=== PATIENT | female | born 1950 | race Caucasian/White ===

== ENCOUNTER 2017-02-08 17:37 | Emergency (ER) | payer MEDICARE, OTHER ==
--- NOTE | 2017-02-08 18:24 | ER NURSING DOCUMENTATION ---
Nurse's Notes [facility] Name:Damari Colbert Age:66 yrs Sex:Female :1950 Arrival Date:02/08/2017 Time:17:37 Bed1 Private MD:No PCP, Identified Diagnosis:Lower Extremity Pain Presentation: 02/08 17:41 Acuity: KIAH 4 rh 17:53 Presenting complaint: Patient states: Pt traveled from [facility] last week and rh developed pain behind the right knee and some bulging veins. Pt also c/o left shoulder discomfort. Transition of care: Home. 17:53 Method Of Arrival: Private Vehicle rh Triage Assessment: 17:55 General: Appears in no apparent distress, Behavior is cooperative. Pain: Complains of rh pain in posterior aspect of right knee and right calf. Cardiovascular: Capillary refill < 3 seconds Chest pain is denied. Derm: Skin is intact, is healthy with good turgor, Skin is pink, warm & dry. Musculoskeletal: Circulation, motion, and sensation intact Range of motion intact in all extremities. Historical: - Allergies: No known drug Allergies; - Home Meds: 1. Crestor oral 2. Lantus Sub-Q 3. Glucophage Oral 4. Unknown BP meds - PMHx: Hypertension; Diabetes - IDDM; HIGH CHOLESTEROL; - PSHx: Hysterectomy; Tonsillectomy; Cholecysectomy; Lap Band; - Tetanus: < 10 years. - Ebola Screening: : Patient negative for fever greater than or equal to 101.5 degrees Fahrenheit, and additional compatible Ebola Virus Disease symptoms. - Immunization history: Flu Vaccine < 1 year. - Social history: Smoking status: Patient states was never smoker of tobacco. Screenin:56 Infectious Disease Risk None. Abuse screen: Denies threats or abuse. Denies injuries rh from another. Nutritional screening: No deficits noted. Assessment: 17:56 See Triage Assessment done by same RN. rh Vital Signs: 17:55 BP 172 / 91; Pulse 86; Resp 17; Temp 98.2(O); Pulse Ox 94% on R/A; Weight 92.53 kg; rh Height 5 ft. 7 in. (170.18 cm); Pain 3/10; 17:55 Body Mass Index 31.95 (92.53 kg, 170.18 cm) rh ED Course: 17:39 Patient arrived in ED. ds 17:39 No PCP, Identified is Private Physician. ds 17:41 Kori Snowden is Primary Nurse. rh 17:41 Triage completed. rh 17:55 Notified ED Physician of patient's arrival and chief complaint. Dr. Webber notified. rh 17:56 Valuables Remains with patient Patient has correct armband on for positive rh identification. Bed in low position. Call light in reach. 18:00 David Webber MD is Attending Physician. 18:10 EKG done. (by ED staff). Reviewed by David Webber MD. rh Administered Medications: 18:21 Drug: Lovenox 1 mg/kg; Route: Sub-Q; Site: right upper abdomen; rh 18:23 Follow up: Response: No adverse reaction rh Outcome: 18:09 Discharge ordered by . 18:23 Discharged to home ambulatory. rh 18:23 Condition: stable 18:23 Discharge Assessment: Patient awake, alert and oriented x 3. No cognitive and/or functional deficits noted. Patient verbalized understanding of disposition instructions. 18:23 Discharge instructions given to patient, Instructed on discharge instructions, follow up and referral plans. Demonstrated understanding of instructions. 18:24 Patient left the ED. Signatures: Meghan, Lorrie, Reg Reg David Pizano MD MD jm Hofsess, Rachel
--- NOTE | 2017-02-08 18:24 | ER PHYSICIAN DOCUMENTATION ---
Physician Documentation [facility] Name:Damari Colbert Age:66 yrs Sex:Female :1950 Arrival Date:02/08/2017 Time:17:37 Bed1 Private MD:No PCP, Identified ED FerozDavid Disposition: 02/08/17 18:09 Discharged to Home/Self Care. Impression: Lower Extremity Pain. - Condition is Good. - Discharge Instructions: MUSCLE ACHING - MYALGIAS. - Medical Reconciliation form form. - Follow up: Private Physician; When: As needed; Reason: Continuance of care. - Problem is new. - Symptoms have improved. - Notes: Return to the ER tomorrow AM for an ultrasound. HPI: 02/08 17:30 This 66 yrs old Female presents to ER via Private Vehicle with complaints of jm Leg Pain - RT. 17:30 The patient presents with pain, that is acute. The complaints affect the posterior jm aspect of right knee. Onset: The symptom(s)/episode began/occurred yesterday, and became worse today. Pt worried about a DVT, so she came in to get an US. . Historical: - Allergies: No known drug Allergies; - Home Meds: 1. Crestor oral 2. Lantus Sub-Q 3. Glucophage Oral 4. Unknown BP meds - PMHx: Hypertension; Diabetes - IDDM; HIGH CHOLESTEROL; - PSHx: Hysterectomy; Tonsillectomy; Cholecysectomy; Lap Band; - Tetanus: < 10 years. - Ebola Screening: : Patient negative for fever greater than or equal to 101.5 degrees Fahrenheit, and additional compatible Ebola Virus Disease symptoms. - Immunization history: Flu Vaccine < 1 year. - Social history: Smoking status: Patient states was never smoker of tobacco. ROS: 17:30 Cardiovascular: Negative for chest pain. jm 17:30 Respiratory: Negative for cough, shortness of breath. 17:30 MS/extremity: Positive for swelling, tenderness. 17:30 Skin: Positive for swelling. Exam: 17:30 Constitutional: The patient appears alert, awake, obese. 17:30 Cardiovascular: Rate: normal, Rhythm: regular. 17:30 Respiratory: the patient does not display signs of respiratory distress, Respirations: normal, Breath sounds: are normal. 17:30 Musculoskeletal/extremity: DVT Exam: no swelling, negative Homans' sign noted on exam, no appreciated bluish discoloration, no erythema, no increased warmth, pain, tenderness, Calves: have equal circumference, are tender, on right. 17:30 Skin: Appearance: Color: pink, no rash present. 17:30 Neuro: Mentation: is normal, Memory: is normal. Vital Signs: 17:55 BP 172 / 91; Pulse 86; Resp 17; Temp 98.2(O); Pulse Ox 94% on R/A; Weight 92.53 kg; rh Height 5 ft. 7 in. (170.18 cm); Pain 3/10; 17:55 Body Mass Index 31.95 (92.53 kg, 170.18 cm) rh MDM: 17:44 Patient medically screened. 02/09 09:32 Differential diagnosis: contusion, DVT or superficial phlebitis. Data reviewed: vital jm signs, nurses notes, and as a result, I will discharge patient. Counseling: I had a detailed discussion with the patient and/or guardian regarding: the historical points, exam findings, and any diagnostic results supporting the discharge/admit diagnosis, the need for outpatient follow up, for a recheck, tomorrow in the ER for an US of the RLE- Pt given lovenox here and told to RTED tomorrow when US is available. 02/08 18:01 Order name: 12-lead EKG; Complete Time: 18:22 Dispensed Medications: 02/08 18:21 Drug: Lovenox 1 mg/kg; Route: Sub-Q; Site: right upper abdomen; 18:23 Follow up: Response: No adverse reaction rh Signatures: David Webber MD MD jm Hofsess, Rachel
[2017-02-08] MEDS ORDERED: ENOXAPARIN SODIUM 100 MG/ML SYR SUBCUT ONE (18:25)
== END 2017-02-08 18:24 | disposition home or self-care (01) ==
LOC: ER 17:37
DX: M79.604 Pain in right leg (principal); M79.89 Other specified soft tissue disorders; E78.00 Pure hypercholesterolemia, unspecified; E11.9 Type 2 diabetes mellitus without complications; Z79.899 Other long term (current) drug therapy; Z79.4 Long term (current) use of insulin
CPT/HCPCS: 93005; 96372; 99282; 99283; J1650

== ENCOUNTER 2017-02-09 10:03 | Emergency (ER) | payer MEDICARE, OTHER ==
--- NOTE | 2017-02-09 10:59 | ER NURSING DOCUMENTATION ---
Nurse's Notes [facility] Name:Damari Colbert Age:66 yrs Sex:Female :1950 Arrival Date:02/09/2017 Time:10:03 Bed5 Private MD: Diagnosis:Bakers Cyst Presentation: 02/09 10:05 Presenting complaint: Patient states: right leg pain for a few days. pt seen yesterday st and told to return to get an US. Transition of care: Home. 10:05 Acuity: KIAH 4 st 10:05 Method Of Arrival: Private Vehicle st Triage Assessment: 10:14 General: Appears in no apparent distress, Behavior is cooperative. Pain: Complains of st pain in posterior aspect of right knee Pain currently is 3 out of 10 on a pain scale. Pain began 10 days ago. Cardiovascular: Capillary refill < 3 seconds Heart tones present Reports some swelling in her feet bilaterally since arrival. none assessable. Respiratory: No deficits noted. GI: No deficits noted. Musculoskeletal: blue spidery veins behind the right knee. Historical: - Allergies: No known drug Allergies; - Home Meds: 1. Crestor oral 2. Lantus Sub-Q 3. Glucophage Oral 4. Unknown BP meds - PMHx: HYPERTENSION; DIABETES - IDDM; HIGH CHOLESTEROL; Lower Extremity Pain (February 08, 2017); - PSHx: HYSTERECTOMY; TONSILLECTOMY; CHOLECYSECTOMY; Lap Band; - Tetanus: unknown will f/u with PCP. - Ebola Screening: : Patient denies exposure to infectious person. Patient denies travel to an Ebola-affected area in the 21 days before illness onset. . - Social history: Smoking status: Patient states was never smoker of tobacco. Patient uses alcohol but reports only rare drinking. Patient/guardian denies using marijuana. Screenin:17 Infectious Disease Risk None. Abuse screen: Denies threats or abuse. Denies injuries st from another. Nutritional screening: No deficits noted. Vital Signs: 10:17 BP 197 / 71; Pulse 74; Pulse Ox 93% ; Pain 3/10; st 10:57 BP 156 / 86; st ED Course: 10:05 Patient arrived in ED. ama 10:05 David Webber MD is Attending Physician. lindy 10:05 Clarissa Key RN is Primary Nurse. st 10:[address] 10:18 Valu[address] patient. st 10:27 Patient moved to [facility]. mk 10:44 Patient moved back from [facility]. mk Administered Medications: No medications were administered Outcome: 10:49 Discharge ordered by . jm 10:57 Discharged to home ambulatory. st 10:57 Condition: good 10:57 Discharge instructions given to patient, Instructed on discharge instructions, follow up and referral plans. 10:58 Patient [address] the ED[address] st Signatures: Clarissa Key, David Rodgers RN, MD MD jm Kimbro, Marcy mk Averdick, Andrew, Reg Reg ama
--- NOTE | 2017-02-09 10:59 | ER PHYSICIAN DOCUMENTATION ---
Physician Documentation [facility] Name:Damari Colbert Age:66 yrs Sex:Female :1950 Arrival Date:02/09/2017 Time:10:03 Bed5 Private MD: David Barnett Disposition: 02/09/17 10:49 Discharged to Home/Self Care. Impression: Bakers Cyst. - Condition is Good. - Discharge Instructions: NAVA'S CYST. - Medical Reconciliation form form. - Follow up: Private Physician; When: As needed; Reason: Continuance of care. - Problem is new. - Symptoms have improved. HPI: 02/09 11:46 This 66 yrs old Female presents to ER via Private Vehicle with complaints of jm Leg Pain - RIGHT. 11:46 The patient presents with pain. The complaints affect the posterior aspect of right jm knee. The patient has been recently seen at the [facility] Emergency Department, yesterday, for similar complaints the patient was told to return for a recheck, for an US. Historical: - Allergies: No known drug Allergies; - Home Meds: 1. Crestor oral 2. Lantus Sub-Q 3. Glucophage Oral 4. Unknown BP meds - PMHx: HYPERTENSION; DIABETES - IDDM; HIGH CHOLESTEROL; Lower Extremity Pain (February 08, 2017); - PSHx: HYSTERECTOMY; TONSILLECTOMY; CHOLECYSECTOMY; Lap Band; - Tetanus: unknown will f/u with PCP. - Ebola Screening: : Patient denies exposure to infectious person. Patient denies travel to an Ebola-affected area in the 21 days before illness onset. . - Social history: Smoking status: Patient states was never smoker of tobacco. Patient uses alcohol but reports only rare drinking. Patient/guardian denies using marijuana. ROS: 11:46 Constitutional: Negative for fever. jm 11:46 MS/extremity: Positive for pain. 11:46 Skin: Negative for swelling. Exam: 11:46 Constitutional: The patient appears alert, awake. jm 11:46 Musculoskeletal/extremity: Extremities: grossly normal except: noted in the posterior aspect of right knee: tenderness, There is no evidence of swelling, Sensation intact. Vital Signs: 10:17 BP 197 / 71; Pulse 74; Pulse Ox 93% ; Pain 3/10; st 10:57 BP 156 / 86; st MDM: 10:06 Patient medically screened. lindy 11:51 Differential diagnosis: contusion, abrasion, nava's cyst. Data reviewed: vital signs, jm nurses notes, radiologic studies, and as a result, I will discharge patient. Counseling: I had a detailed discussion with the patient and/or guardian regarding: the historical points, exam findings, and any diagnostic results supporting the discharge/admit diagnosis, the need for outpatient follow up, with the patient's primary care provider. 02/09 15:11 Order name: US EXT LOWER RIGHT [id number] EDMS Dispensed Medications: No medications were administered Signatures: Clarissa Key, RN David Rodgers MD MD jm
--- NOTE | 2017-02-09 13:48 | US REPORT ---
Routine venous duplex examination of the major deep veins of the right leg demonstrates no primary or secondary evidence of deep venous thrombosis. A 3.8 cm popliteal cyst is noted. IMPRESSION: 1. Examination is negative for major deep venous thrombosis. 2. A 3.8 cm right popliteal cyst is noted. MTDD
== END 2017-02-09 10:59 | disposition home or self-care (01) ==
LOC: ER 10:03
DX: M71.21 Synovial cyst of popliteal space [Baker], right knee (principal); I10 Essential (primary) hypertension; E11.9 Type 2 diabetes mellitus without complications; Z79.899 Other long term (current) drug therapy; Z79.4 Long term (current) use of insulin
CPT/HCPCS: 99283; 99284